=== PATIENT | female | born 1940 | race Caucasian/White ===

== ENCOUNTER → 2022-09-24 | Outpatient (CLI) | payer MEDICARE, OTHER ==
[~2022-09-24] MED LIST: DOBUTamine DRIP PRE-MIX 250 ML IV ONE
[2022-09-24 11:17] VITALS: BP 137/72
== END ==
LOC: CARD 10:28
PROVIDERS: ATTEND Nurse Practitioner Family
DX: R00.2 Palpitations (principal)